=== PATIENT | male | born 1950 | race American Indian/Alaskan Native ===

== ENCOUNTER 2018-11-11 15:59 | Inpatient (IN) | payer MEDICARE ==
--- NOTE | 2018-11-11 16:56 | Emergency Department Report ---
ED Neuro Deficit HPI - General Chief Complaint: Neuro Symptoms/Deficit Stated Complaint: SLURRED SPEECH Time Seen by Provider: 11/11/18 16:39 Source: patient, family, EMS Mode of arrival: Stretcher Limitations: No Limitations - History of Present Illness Initial Comments: Patient is 67 years old male with no significant past medical history. Patient brought to the emergency room for evaluation of possible stroke. Patient stated that she was driving in he was in the passenger side when all of a sudden she noticed that his speech is change. She stated that she popped the Looked at His Face and saw he Face Is Twisting to the Right Side. stated that this is happened approximately at 15:30. The patient denied any weakness, numbness or tingling sensation. He added that he had right leg weakness for the last 3 weeks. Patient denied any headache, neck pain, chest pain, abdominal pain or bowel or bladder incontinence. Patient has been evaluated initially by Dr Keller and found not to have clinical evidence of stroke but likely a TIA, however when I examined the patient after patient , patient found to have mild slurred speech and a mild right facial droop. Patient confirmed this is not the way he speak or his face look. Stroke code initiated. Telemetry neurologist specialist called. -: Sudden Time: 15:30 Location: speech, right face, dysarthria Presenting Symptoms: Present: Facial Droop/Numbness, Unable to Speak Clearly History of same: No Place: outdoors Context: sudden onset Associated Symptoms: denies other symptoms - Related Data Allergies/Adverse Reactions: Allergies Allergy/AdvReac Type Severity Reaction Status Date / Time No Known Allergies Allergy Unverified 11/11/18 16:18 ED Review of Systems ROS: Stated complaint: SLURRED SPEECH Other details as noted in HPI Comment: All other systems reviewed and negative Constitutional: denies: chills, fever Respiratory: denies: cough, orthopnea, shortness of breath, SOB with exertion, SOB at rest, wheezing Cardiovascular: denies: chest pain, palpitations Gastrointestinal: denies: abdominal pain, nausea, vomiting, diarrhea, constipation, hematemesis, melena, hematochezia Musculoskeletal: denies: back pain ED Past Medical Hx - Past Medical History Previous Medical History?: No - Surgical History Past Surgical History?: No - Social History Smoking Status: Current Every Day Smoker Substance Use Type: None ED Neuro Physical Exam - General Limitations: No Limitations General appearance: alert, in no apparent distress Suspected Stroke: Yes - Head Head exam: Present: atraumatic, normocephalic, normal inspection - Eye Eye exam: Present: normal appearance, PERRL - ENT ENT exam: Present: normal exam, normal orophraynx, mucous membranes moist - Neck Neck exam: Present: normal inspection, full ROM. Absent: tenderness, meningismus, lymphadenopathy, thyromegaly - Respiratory Respiratory exam: Present: normal lung sounds bilaterally. Absent: respiratory distress, wheezes, rales, rhonchi, stridor, chest wall tenderness, accessory muscle use, decreased breath sounds, prolonged expiratory - Cardiovascular Cardiovascular Exam: Present: regular rate, normal rhythm, normal heart sounds - GI/Abdominal GI/Abdominal exam: Present: soft, normal bowel sounds. Absent: distended, tenderness, guarding, rebound, rigid, organomegaly, mass, bruit, pulsatile mass, hernia - Extremities Exam Extremities exam: Present: normal inspection, full ROM, normal capillary refill. Absent: pedal edema, joint swelling, calf tenderness - Back Exam Back exam: Present: normal inspection, full ROM. Absent: CVA tenderness (L), muscle spasm, paraspinal tenderness, vertebral tenderness - Neurological Exam Neurological exam: Present: alert, oriented X3. Absent: CN II-XII intact - NIHSS Assessment Interval: Baseline 1a. Level of Consciousness: alert/keenly responsive 1b. LOC Questions: answers both correctly 1c. LOC Commands: performs tasks correctly 2. Best Gaze: normal 3. Visual: no visual loss 4. Facial Palsy: minor paralysis 5b. Motor Arm Right: no drift 5a. Motor Arm Left: no drift 6a. Motor Leg Left: no drift 6b. Motor Leg Right: no drift 7. Limb Ataxia: absent 8. Sensory: normal 9. Best Language: mild/moderate aphasia 10. Dysarthria: mild/moderate dysarthria 11. Extinction/Inattention: no abnormality Total Score: 3 Stroke Severity: Minor Stroke - Psychiatric Psychiatric exam: Present: normal mood - Skin Skin exam: Present: warm, intact, normal color ED Course Vital Signs 11/11/18 11/11/18 11/11/18 16:15 16:20 16:30 Temperature 97.6 F Pulse Rate 61 51 L 58 L Respiratory 17 12 9 L Rate Blood Pressure 125/83 128/77 O2 Sat by Pulse 99 Oximetry 11/11/18 11/11/18 17:16 17:30 Temperature Pulse Rate 60 51 L Respiratory 20 8 L Rate Blood Pressure 125/79 125/79 O2 Sat by Pulse 97 98 Oximetry - Consultations Consultation #1: 11/11/18 17:24 I discussed the patient is Dr. Acosta, Tele- neurologist. Dr. Acosta examined the patient video conference and stated that patient is not a candidate for TPA given a possible previous infarct. She advised to admit patient for stroke workup. - Lab Data Result diagrams: 11/11/18 16:48 11/11/18 16:48 Lab Results 11/11/18 11/11/18 11/11/18 Range/Units 16:48 16:48 16:48 WBC 8.4 (4.5-11.0) K/mm3 RBC 4.65 (3.65-5.03) M/mm3 Hgb 12.9 (11.8-15.2) gm/dl Hct 38.3 (35.5-45.6) % MCV 82 L (84-94) fl MCH 28 (28-32) pg MCHC 34 (32-34) % RDW 14.2 (13.2-15.2) % Plt Count 151 (140-440) K/mm3 Lymph % (Auto) 8.0 L (13.4-35.0) % [place] % (Auto) 1.8 (0.0-7.3) % Eos % (Auto) 0.0 (0.0-4.3) % Baso % (Auto) 0.8 (0.0-1.8) % Lymph # 0.7 L (1.2-5.4) K/mm3 [place] # 0.2 (0.0-0.8) K/mm3 Eos # 0.0 (0.0-0.4) K/mm3 Baso # 0.1 (0.0-0.1) K/mm3 Seg Neutrophils % 89.4 H (40.0-70.0) % Seg Neutrophils # 7.5 (1.8-7.7) K/mm3 PT 14.2 (12.2-14.9) Sec. INR 1.04 (0.87-1.13) APTT 28.2 (24.2-36.6) Sec. Thrombin Time (15.1-19.6) Sec. Sodium 139 (137-145) mmol/L Potassium 4.4 (3.6-5.0) mmol/L Chloride 103.8 (98-107) mmol/L Carbon Dioxide 27 (22-30) mmol/L Anion Gap 13 mmol/L BUN 15 (9-20) mg/dL Creatinine 0.9 (0.8-1.5) mg/dL Estimated GFR > 60 ml/min BUN/Creatinine Ratio 17 % Glucose 127 H (75-100) mg/dL POC Glucose (70-105) Calcium 8.7 (8.4-10.2) mg/dL Troponin T < 0.010 (0.00-0.029) ng/mL 11/11/18 11/11/18 Range/Units 16:48 16:59 WBC (4.5-11.0) K/mm3 RBC (3.65-5.03) M/mm3 Hgb (11.8-15.2) gm/dl Hct (35.5-45.6) % MCV (84-94) fl MCH (28-32) pg MCHC (32-34) % RDW (13.2-15.2) % Plt Count (140-440) K/mm3 Lymph % (Auto) (13.4-35.0) % [place] % (Auto) (0.0-7.3) % Eos % (Auto) (0.0-4.3) % Baso % (Auto) (0.0-1.8) % Lymph # (1.2-5.4) K/mm3 [place] # (0.0-0.8) K/mm3 Eos # (0.0-0.4) K/mm3 Baso # (0.0-0.1) K/mm3 Seg Neutrophils % (40.0-70.0) % Seg Neutrophils # (1.8-7.7) K/mm3 PT (12.2-14.9) Sec. INR (0.87-1.13) APTT (24.2-36.6) Sec. Thrombin Time 16.0 (15.1-19.6) Sec. Sodium (137-145) mmol/L Potassium (3.6-5.0) mmol/L Chloride (98-107) mmol/L Carbon Dioxide (22-30) mmol/L Anion Gap mmol/L BUN (9-20) mg/dL Creatinine (0.8-1.5) mg/dL Estimated GFR ml/min BUN/Creatinine Ratio % Glucose (75-100) mg/dL POC Glucose 125 H (70-105) Calcium (8.4-10.2) mg/dL Troponin T (0.00-0.029) ng/mL - EKG Data -: EKG Interpreted by Me EKG shows normal: sinus rhythm Rate: bradycardia Interpretation: no acute changes - Radiology Data Radiology results: report reviewed - Medical Decision Making Patient is 67 years old male with no significant past medical history. Patient brought to the emergency room for evaluation of possible stroke. Patient stated that she was driving in he was in the passenger side when all of a sudden she noticed that his speech is change. She stated that she popped the Looked at His Face and saw he Face Is Twisting to the Right Side. stated that this is happened approximately at 15:30. The patient denied any weakness, numbness or tingling sensation. He added that he had right leg weakness for the last 3 weeks. Patient denied any headache, neck pain, chest pain, abdominal pain or bowel or bladder incontinence. Patient has been evaluated initially by Dr Keller and found not to have clinical evidence of stroke but likely a TIA, however when I examined the patient after patient , patient found to have mild slurred speech and a mild right facial droop. Patient confirmed this is not the way he speak or his face look. Stroke code initiated. Telemetry neurologist specialist called. I discussed the patient is Dr. Boateng, he agreed to admit the patient to medical service. Critical Care Time: Yes Critical care time in (mins) excluding proc time.: 30 Critical care attestation.: If time is entered above; I have spent that time in minutes in the direct care of this critically ill patient, excluding procedure time. ED Disposition Clinical Impression: Stroke Disposition: [id number] OP ADMIT IP TO THIS HOSP Is pt being admited?: Yes Condition: Stable
--- NOTE | 2018-11-11 17:02 | Event Note ---
Date: 11/11/18 Patient was brought to the hospital by emergency medical services for nonspecific slurred speech. They're not able to tell me when this started e xactly. When I initially evaluate the patient, he is alert and oriented 3, denies pain, and endorses no acute complaint. Patient initially has an NIH score of 0. There is no obvious facial facial droop, and the patient is able to speak in clear lucid sentences. He is specifically able to repeat after this provider, and states "the ski is blue" and " i like to drink coke." at the time of initial evaluation has no stroke like symptoms present, thus code stroke not activated i did recommend tia work up
[2018-11-11 17:03] LABS: Basophils # (Auto) 0.1 K/mm3 (0.0-0.1); Basophils % (Auto) 0.8 % (0.0-1.8); Hematocrit 38.3 % (35.5-45.6); Hemoglobin 12.9 gm/dl (11.8-15.2); Lymphocytes # (Auto) 0.7 K/mm3 (1.2-5.4); Mean Corpuscular HGB Conc 34 % (32-34); Mean Corpuscular Volume 82 fl (84-94); Monocytes # (Auto) 0.2 K/mm3 (0.0-0.8); Monocytes % (Auto) 1.8 % (0.0-7.3); Platelet Count 151 K/mm3 (140-440); Red Blood Count 4.65 M/mm3 (3.65-5.03); Red Cell Distribution Width 14.2 % (13.2-15.2)
[2018-11-11 17:14] LABS: INR 1.04 (0.87-1.13)
[2018-11-11 17:15] LABS: Partial Thromboplastin Time 28.2 Sec. (24.2-36.6)
[2018-11-11 17:18] LABS: BUN/Creatinine Ratio 17; Blood Urea Nitrogen 15 mg/dL (9-20); Calcium 8.7 mg/dL (8.4-10.2); Hemolysis Index 4
--- NOTE | 2018-11-11 17:32 | Cat Scan Report ---
PROCEDURE: CT HEAD/BRAIN WO CON TECHNIQUE: CT of the head was performed without intravenous contrast. HISTORY: neuro deficits COMPARISONS: None FINDINGS: The ventricles are normal in position and shape. The ventricles are nondilated. No intracranial hemorrhage, mass, mass effect or evidence of acute ischemic infarct. Mild areas of lo w-attenuation are seen within the periventricular white matter. The basilar cisterns are patent. Right maxillary sinus mucus retention cyst is seen. The mastoid air cells are clear. The orbits are intact. The calvarium is intact. No extracranial soft tissue swelling. IMPRESSION: 1. No acute intracranial abnormality. 2. Mild findings of chronic microvascular ischemic disease. The negative results were discussed by the [facility] staff with Dr. Jorge at 2:28 PM PST on 11/11/2018. This document is electronically signed by Betty Patterson., November 11 2018 05:30:27 PM ET
--- NOTE | 2018-11-11 18:04 | Consultation ---
History of Present Illness Consult date: 11/11/18 Reason for Consult: stroke alert Chief complaint: right facial droop, slurred speech History of present illness: 67 yo male with history of having sudden weakness in his right leg about 2 months ago that has persisted went to bed last night at 2330 hrs normal; woke this AM and noted a slight right facial droop and that he was "keeping to himself"... then around 1630 hrs she noted he was slurring his speech; brought him to the ED; no h/o stroke, doesnt take any meds. PMH/PSH/FH/SH noted meds- reviewed Medications and Allergies Allergies Allergy/AdvReac Type Severity Reaction Status Date / Time No Known Allergies Allergy Unverified 11/11/18 16:18 Physical Examination - Vital Signs Vital Signs: Vital Signs Temp Pulse Resp BP Pulse Ox 97.6 F 61 17 125/83 99 11/11/18 16:15 11/11/18 16:15 11/11/18 16:15 11/11/18 16:15 11/11/18 16:15 - Level of Consciousness 1a. Level of Consciousness: alert/keenly responsive - LOC Questions 1b. LOC Questions: answers both correctly - LOC Command 1c. LOC Commands: performs tasks correctly - Best Gaze 2. Best Gaze: normal - Visual 3. Visual: no visual loss (he has a right eye exotropia) - Facial Palsy 4. Facial Palsy: minor paralysis (right side) - Motor Arm 5a. Motor Arm Left: no drift 5b. Motor Arm Right: no drift - Motor Leg 6a. Motor Leg Left: no drift 6b. Motor Leg Right: drift - Limb Ataxia 7. Limb Ataxia: absent - Sensory 8. Sensory: normal - Best Language 9. Best Language: no aphasia - Dysarthria 10. Dysarthria: normal - Extinction and Inattention 11. Extinction/Inattention: no abnormality - Scoring Total Score: 2 Stroke Severity: Minor Stroke Results - Laboratory Findings CBC and BMP: 11/11/18 16:48 11/11/18 16:48 Abnormal Lab Findings: Abnormal Labs 11/11/18 11/11/18 11/11/18 16:48 16:48 16:59 MCV 82 L Lymph % (Auto) 8.0 L Lymph # 0.7 L Seg Neutrophils % 89.4 H Glucose 127 H POC Glucose 125 H Assessment and Plan [facility] Tele[facility] Consult Services Impression: r/o stroke vs TIA Recommendations: aspirin now and daily MRI brain to r/o stroke MRA H/N echo, lipids, a1C, telemetry inpatient neurology consult Metrics: LKN: 2330 TS [id number] TS connected 1653 [facility] 1653 Door:[id number] Medical Decision Making: - Extensive number of diagnosis or management options are considered above. - Extensive amount of complex data reviewed. - High risk of complication and/or morbidity or mortality are associated with differential diagnostic considerations above. - There may be uncertain outcome and increased probability of prolonged functi onal impairment or high probability of severe prolonged functional impairment associated with some of these differential diagnosis. Medical Data Reviewed: 1.Data reviewed include clinical labs, radiology, Medical Tests; 2.Tests results discussed w/performing or interpreting physician; 3.Obtaining/reviewing old medical records; 4.Obtaining case history from another source; 5.Independent review of image, tracing or specimen. Patient was informed the Neurology Consult would happen via telehealth (remote video) and consented to receiving care in this manner.
[2018-11-11] MEDS ORDERED: SODIUM CHLORIDE FLUSH SYRINGE 10 ML INJ PRN (20:39)
[2018-11-11] MEDS ORDERED: DULCOLAX PR PRN (20:39)
[2018-11-11] MEDS ORDERED: REGLAN PO PRN (20:39)
[2018-11-11] MEDS ORDERED: MILK OF MAGNESIA PO PRN (20:39)
[2018-11-11] MEDS ORDERED: SODIUM CHLORIDE FLUSH SYRINGE 10 ML IV PRN (20:39)
[2018-11-11] MEDS ORDERED: TYLENOL PO PRN ×2 (20:39)
[2018-11-11] MEDS ORDERED: PHENERGAN PR PRN (20:39)
[2018-11-11] MEDS ORDERED: ZOFRAN IV PRN ×2 (20:39)
--- NOTE | 2018-11-11 21:10 | History and Physical Report ---
<GREY CELAYA - Last Filed: 11/13/18 20:39> History of Present Illness Date of examination: 11/11/18 Date of admission: 11/11/18 18:08 Chief complaint: Slurred speech, facial droop History of present illness: Patient is a 67-year-old male with no prior medical history who presents to the ER with his for complaints of slurred speech and right facial droop. Patient's reports that the symptoms started prior to arriving to the ER, while they were driving she noticed that this speech was slurred, and his face was drooping to the right. Patient's states that she decided to takes him to the ER for evaluation. Patient was examined by teleneurology, he denies any confusion, any weakness, his speech was noted to be slightly slurred, and he had a mild drooping on his face. Patient reports a right leg pain that has been going on for 3 weeks, he denies any acute illness, denies visual changes, denies memory impairment, denies difficulty speaking, denies headache, denies dizziness, denies numbness or tingling. Patient was examined and the his physical exam was within normal limit except for mild facial droop, speech is clear, he was alert and orientated 3. A CT scan of the brain was done and was negative, patient is admitted for further evaluation of his symptoms. Past History Past Medical History: No medical history Past Surgical History: No surgical history Social history: smoking (few cigarette per day) Family history: no significant family history Medications and Allergies Allergies Allergy/AdvReac Type Severity Reaction Status Date / Time No Known Allergies Allergy Verified 11/11/18 21:12 Home Medications Medication Instructions Recorded Confirmed Last Taken Type No Known Home Medications [No 11/11/18 11/11/18 Unknown History Reported Home Medications] Review of Systems Ears, nose, mouth and throat: other (facial droop) Musculoskeletal: leg numbness/tingling, other (right leg pain) Exam - Constitutional Vitals: Temp Pulse Resp BP Pulse Ox 97.3 F L 63 12 136/77 97 11/11/18 20:39 11/11/18 20:39 11/11/18 20:39 11/11/18 20:39 11/11/18 20:39 General appearance: Present: no acute distress - EENT Eyes: Present: EOM intact ENT: hearing intact - Neck Neck: Present: normal ROM - Respiratory Respiratory effort: normal Respiratory: bilateral: CTA - Cardiovascular Rhythm: regular Heart Sounds: Present: S1 & S2 - Extremities Extremities: no ischemia Peripheral Pulses: within normal limits - Abdominal General gastrointestinal: Present: soft, non-tender Male genitourinary: Present: deferred - Rectal Rectal Exam: deferred - Integumentary Integumentary: Present: warm, dry - Musculoskeletal Musculoskeletal: strength equal bilaterally - Psychiatric Psychiatric: cooperative - Neurologic Neurologic: moves all extremities Results - Labs CBC & Chem 7: 11/11/18 16:48 11/11/18 16:48 Labs: Laboratory Last Values WBC 8.4 K/mm3 (4.5-11.0) 11/11/18 16:48 RBC 4.65 M/mm3 (3.65-5.03) 11/11/18 16:48 Hgb 12.9 gm/dl (11.8-15.2) 11/11/18 16:48 Hct 38.3 % (35.5-45.6) 11/11/18 16:48 MCV 82 fl (84-94) L 11/11/18 16:48 MCH 28 pg (28-32) 11/11/18 16:48 MCHC 34 % (32-34) 11/11/18 16:48 RDW 14.2 % (13.2-15.2) 11/11/18 16:48 Plt Count 151 K/mm3 (140-440) 11/11/18 16:48 Lymph % (Auto) 8.0 % (13.4-35.0) L 11/11/18 16:48 [place] % (Auto) 1.8 % (0.0-7.3) 11/11/18 16:48 Eos % (Auto) 0.0 % (0.0-4.3) 11/11/18 16:48 Baso % (Auto) 0.8 % (0.0-1.8) 11/11/18 16:48 Lymph # 0.7 K/mm3 (1.2-5.4) L 11/11/18 16:48 [place] # 0.2 K/mm3 (0.0-0.8) 11/11/18 16:48 Eos # 0.0 K/mm3 (0.0-0.4) 11/11/18 16:48 Baso # 0.1 K/mm3 (0.0-0.1) 11/11/18 16:48 Seg Neutrophils % 89.4 % (40.0-70.0) H 11/11/18 16:48 Seg Neutrophils # 7.5 K/mm3 (1.8-7.7) 11/11/18 16:48 PT 14.2 Sec. (12.2-14.9) 11/11/18 16:48 INR 1.04 (0.87-1.13) 11/11/18 16:48 APTT 28.2 Sec. (24.2-36.6) 11/11/18 16:48 Thrombin Time 16.0 Sec. (15.1-19.6) 11/11/18 16:48 Sodium 139 mmol/L (137-145) 11/11/18 16:48 Potassium 4.4 mmol/L (3.6-5.0) 11/11/18 16:48 Chloride 103.8 mmol/L (98-107) 11/11/18 16:48 Carbon Dioxide 27 mmol/L (22-30) 11/11/18 16:48 Anion Gap 13 mmol/L 11/11/18 16:48 BUN 15 mg/dL (9-20) 11/11/18 16:48 Creatinine 0.9 mg/dL (0.8-1.5) 11/11/18 16:48 Estimated GFR > 60 ml/min 11/11/18 16:48 BUN/Creatinine Ratio 17 % 11/11/18 16:48 Glucose 127 mg/dL (75-100) H 11/11/18 16:48 POC Glucose 125 (70-105) H 11/11/18 16:59 Calcium 8.7 mg/dL (8.4-10.2) 11/11/18 16:48 Troponin T < 0.010 ng/mL (0.00-0.029) 11/11/18 16:48 Assessment and Plan Assessment and plan: 1. Acute TIA r/o CVA 2. Chronic Right leg pain and discomfort Plan: Patient is admitted for TIA to rule out CVA Monitor vital signs/cardiac studies Neuro checks q4hrs MRI of the brain for follow-up CT Bedside swallow study Keep NPO until swallow study Further plan per neurology Advance Directives: Yes VTE prophylaxis?: Mechanical Plan of care discussed with patient/family: Yes <IRIS CENTENO - Last Filed: 11/19/18 07:22> History of Present Illness Date of admission: 11/11/18 18:08 Exam - Constitutional Vitals: Temp Pulse Resp BP Pulse Ox 97.6 F 61 12 110/74 99 11/13/18 04:09 11/13/18 08:08 11/13/18 04:09 11/13/18 04:09 11/13/18 04:09 Results - Labs CBC & Chem 7: 11/11/18 16:48 11/11/18 16:48 Labs: Laboratory Last Values WBC 8.4 K/mm3 (4.5-11.0) 11/11/18 16:48 RBC 4.65 M/mm3 (3.65-5.03) 11/11/18 16:48 Hgb 12.9 gm/dl (11.8-15.2) 11/11/18 16:48 Hct 38.3 % (35.5-45.6) 11/11/18 16:48 MCV 82 fl (84-94) L 11/11/18 16:48 MCH 28 pg (28-32) 11/11/18 16:48 MCHC 34 % (32-34) 11/11/18 16:48 RDW 14.2 % (13.2-15.2) 11/11/18 16:48 Plt Count 151 K/mm3 (140-440) 11/11/18 16:48 Lymph % (Auto) 8.0 % (13.4-35.0) L 11/11/18 16:48 [place] % (Auto) 1.8 % (0.0-7.3) 11/11/18 16:48 Eos % (Auto) 0.0 % (0.0-4.3) 11/11/18 16:48 Baso % (Auto) 0.8 % (0.0-1.8) 11/11/18 16:48 Lymph # 0.7 K/mm3 (1.2-5.4) L 11/11/18 16:48 [place] # 0.2 K/mm3 (0.0-0.8) 11/11/18 16:48 Eos # 0.0 K/mm3 (0.0-0.4) 11/11/18 16:48 Baso # 0.1 K/mm3 (0.0-0.1) 11/11/18 16:48 Seg Neutrophils % 89.4 % (40.0-70.0) H 11/11/18 16:48 Seg Neutrophils # 7.5 K/mm3 (1.8-7.7) 11/11/18 16:48 PT 14.2 Sec. (12.2-14.9) 11/11/18 16:48 INR 1.04 (0.87-1.13) 11/11/18 16:48 APTT 28.2 Sec. (24.2-36.6) 11/11/18 16:48 Thrombin Time 16.0 Sec. (15.1-19.6) 11/11/18 16:48 Sodium 139 mmol/L (137-145) 11/11/18 16:48 Potassium 4.4 mmol/L (3.6-5.0) 11/11/18 16:48 Chloride 103.8 mmol/L (98-107) 11/11/18 16:48 Carbon Dioxide 27 mmol/L (22-30) 11/11/18 16:48 Anion Gap 13 mmol/L 11/11/18 16:48 BUN 15 mg/dL (9-20) 11/11/18 16:48 Creatinine 0.9 mg/dL (0.8-1.5) 11/11/18 16:48 Estimated GFR > 60 ml/min 11/11/18 16:48 BUN/Creatinine Ratio 17 % 11/11/18 16:48 Glucose 127 mg/dL (75-100) H 11/11/18 16:48 POC Glucose 125 (70-105) H 11/11/18 16:59 Hemoglobin A1c 5.8 % (4-6) 11/11/18 16:48 Calcium 8.7 mg/dL (8.4-10.2) 11/11/18 16:48 Troponin T < 0.010 ng/mL (0.00-0.029) 11/11/18 16:48 Triglycerides 49 mg/dL (2-149) 11/11/18 21:50 Cholesterol 148 mg/dL (50-199) 11/11/18 21:50 LDL Cholesterol Direct 98 mg/dL (50-130) 11/11/18 21:50 HDL Cholesterol 49 mg/dL (40-59) 11/11/18 21:50 Cholesterol/HDL Ratio 3.02 % 11/11/18 21:50 Urine Color Yellow (Yellow) 11/11/18 23:27 Urine Turbidity Clear (Clear) 11/11/18 23:27 Urine pH 6.0 (5.0-7.0) 11/11/18 23:27 Ur Specific [place] 1.060 (1.003-1.030) H 11/11/18 23:27 Urine Protein <15 mg/dl mg/dL (Negative) 11/11/18 23:27 Urine Glucose (UA) Neg mg/dL (Negative) 11/11/18 23:27 Urine Ketones Neg mg/dL (Negative) 11/11/18 23:27 Urine Blood Neg (Negative) 11/11/18 23:27 Urine Nitrite Neg (Negative) 11/11/18 23:27 Urine Bilirubin Neg (Negative) 11/11/18 23:27 Urine Urobilinogen 2.0 mg/dL (<2.0) 11/11/18 23:27 Ur Leukocyte Esterase Neg (Negative) 11/11/18 23:27 Urine WBC (Auto) 1.0 /HPF (0.0-6.0) 11/11/18 23:27 Urine RBC (Auto) 5.0 /HPF (0.0-6.0) 11/11/18 23:27 Urine Mucus 1+ /HPF 11/11/18 23:27 Urine Opiates Screen Presumptive negative 11/11/18 23:27 Urine Methadone Screen Presumptive negative 11/11/18 23:27 Ur Barbiturates Screen Presumptive negative 11/11/18 23:27 Ur Phencyclidine Scrn Presumptive negative 11/11/18 23:27 Ur Amphetamines Screen Presumptive negative 11/11/18 23:27 U Benzodiazepines Scrn Presumptive negative 11/11/18 23:27 Urine Cocaine Screen Presumptive negative 11/11/18 23:27 U Marijuana (THC) Screen Presumptive negative 11/11/18 23:27 Drugs of Abuse Note Disclamer 11/11/18 23:27
--- NOTE | 2018-11-11 21:21 | Cat Scan Report ---
PROCEDURE: CT angiogram neck with contrast. TECHNIQUE: Computerized tomographic angiography of the neck was performed after the IV injection of iodinated nonionic contrast including image processing. The image data was postprocessed using 2-dime nsional multiplanar reformatted (MPR) and 3-dimensional (MIP and/or volume rendered) techniques. CT DOSE LENGTH PRODUCT: 785.6 mGycm HISTORY: Stroke. COMPARISONS: None. Note: Assessment of carotid artery stenosis is based on measurement of the distal internal carotid a rtery diameter as the denominator for stenosis calculations and the [place] Symptomatic Caroti d Endarterectomy Trial (NASCET) stenosis criteria. FINDINGS: The technologist has included some images of the head. There is a separate requisition for that study . I will limit my review to the images of the neck. The origins of the innominate artery, left common carotid artery and left subclavian artery are paten t. Both common carotid arteries are patent. There is some atherosclerotic plaque at both carotid floridalma ry bifurcations. There is no significant narrowing of either internal carotid artery however. Both in ternal carotid arteries are widely patent. Both external carotid arteries are widely patent. Both rufino tebral arteries are widely patent. The soft tissues of the neck are unremarkable. The bones appear in tact. The mastoid air cells and paranasal sinuses are clear. IMPRESSION: No evidence of significant atherosclerotic narrowing in either carotid artery. This document is electronically signed by Emilio Batres MD., November 11 2018 09:18:59 PM ET
--- NOTE | 2018-11-11 22:10 | Cat Scan Report ---
PROCEDURE: CT ANGIO HEAD TECHNIQUE: CT angiogram head with intravenous contrast Study performed with multiplanar reconstructions and maximum intensity 3-D reconstruction HISTORY: stroke COMPARISONS: FINDINGS: Cavernous ICAs are unremarkable Before meals distribution is within normal limits. MCA distribution demonstrates normal caliber no ev idence for vascular occlusions. The distal vertebral arteries and basilar and STAVE [employer] BOL[employer] EQUAL[employer]ER distributions are unremarkable. IMPRESSION: Negative CT angiogram head. This document is electronically signed by Kenny Hernandez MD., November 11 2018 10:09:18 PM ET
[2018-11-11] MEDS: SODIUM CHLORIDE FLUSH SYRINGE 10 ML IV SCH (22:27)
[2018-11-11 22:43] LABS: Chol/HDL Ratio 3.02 %
[2018-11-11 23:59] LABS: Amphetamine Screen,Urine PRESUMPTIVE NEGATIVE; Benzodiazepines Screen,Urine PRESUMPTIVE NEGATIVE; Cannabinoid Screen,Urine PRESUMPTIVE NEGATIVE; Cocaine Screen,Urine PRESUMPTIVE NEGATIVE; Methadone Screen,Urine PRESUMPTIVE NEGATIVE; Opiate Screen,Urine PRESUMPTIVE NEGATIVE
[2018-11-12 00:07] LABS: Bilirubin,Urine NEG (Negative); Blood,Urine NEG (Negative); Color,Urine Yellow (Yellow); Protein,Urine <15 mg/dL mg/dL (Negative)
[2018-11-12 00:13] LABS: Mucus,Urine 1+ /HPF
[2018-11-12] MEDS: SODIUM CHLORIDE FLUSH SYRINGE 10 ML IV SCH ×2 (09:59→23:04)
--- NOTE | 2018-11-12 11:48 | Progress Note ---
Assessment and Plan Assessment and plan: 67-year-old male with no significant past medical history came to the hospital with acute onset of slurred speech and a symmetrical face. He had been complaining of right leg weakness [address] head; no acute findings CT angiogram head; no acute findings CT angiogram neck; no acute findings Labs; LDL 98 , urinalysis negative, UDS negative EKG; sinus yash, 54BPM Diagnoses TIA Plan Obtain MRI brain, MRA head, carotid Dopplers, echocardiogram, permissive hypertension, stroke education, neurology consult Optimize meds as secondary prevention, aspirin and statin added -DVT prophylaxis SCDs and early ambulation History Interval history: Review of systems Constitutional: No fevers, no malaise, no joint pains CVS: No chest pain, no orthopnea, no dyspnea on exertion, no pedal edema GI: No abdominal pain, no diarrhea, no vomiting, no constipation Respiratory: No shortness of breath, no wheezing, no coughing Hospitalist Physical - Physical exam Narrative exam: General.: Appears well, no distress, nontoxic HEENT: Moist mucous membranes, extraocular muscles intact, no lymphadenopathy Neck: supple Cardiac: S1-S2 heard Lungs: clear to auscultation bilaterally Abdomen: soft , nontender, nondistended, bowel sounds positive Extremities: no edema clubbing or cyanosis Skin: no rash or lesions Neurologic: no gross focal deficits Psych: calm, and cooperative - Constitutional Vitals: Temp Pulse Resp BP Pulse Ox 97.9 F 77 22 112/72 77 L 11/12/18 11:19 11/12/18 11:19 11/12/18 11:19 11/12/18 11:19 11/12/18 11:19 General appearance: Present: no acute distress Results - Labs CBC & Chem 7: 11/11/18 16:48 11/11/18 16:48 Labs: Laboratory Last Values WBC 8.4 K/mm3 (4.5-11.0) 11/11/18 16:48 RBC 4.65 M/mm3 (3.65-5.03) 11/11/18 16:48 Hgb 12.9 gm/dl (11.8-15.2) 11/11/18 16:48 Hct 38.3 % (35.5-45.6) 11/11/18 16:48 MCV 82 fl (84-94) L 11/11/18 16:48 MCH 28 pg (28-32) 11/11/18 16:48 MCHC 34 % (32-34) 11/11/18 16:48 RDW 14.2 % (13.2-15.2) 11/11/18 16:48 Plt Count 151 K/mm3 (140-440) 11/11/18 16:48 Lymph % (Auto) 8.0 % (13.4-35.0) L 11/11/18 16:48 Coles % (Auto) 1.8 % (0.0-7.3) 11/11/18 16:48 Eos % (Auto) 0.0 % (0.0-4.3) 11/11/18 16:48 Baso % (Auto) 0.8 % (0.0-1.8) 11/11/18 16:48 Lymph # 0.7 K/mm3 (1.2-5.4) L 11/11/18 16:48 Coles # 0.2 K/mm3 (0.0-0.8) 11/11/18 16:48 Eos # 0.0 K/mm3 (0.0-0.4) 11/11/18 16:48 Baso # 0.1 K/mm3 (0.0-0.1) 11/11/18 16:48 Seg Neutrophils % 89.4 % (40.0-70.0) H 11/11/18 16:48 Seg Neutrophils # 7.5 K/mm3 (1.8-7.7) 11/11/18 16:48 PT 14.2 Sec. (12.2-14.9) 11/11/18 16:48 INR 1.04 (0.87-1.13) 11/11/18 16:48 APTT 28.2 Sec. (24.2-36.6) 11/11/18 16:48 Thrombin Time 16.0 Sec. (15.1-19.6) 11/11/18 16:48 Sodium 139 mmol/L (137-145) 11/11/18 16:48 Potassium 4.4 mmol/L (3.6-5.0) 11/11/18 16:48 Chloride 103.8 mmol/L (98-107) 11/11/18 16:48 Carbon Dioxide 27 mmol/L (22-30) 11/11/18 16:48 Anion Gap 13 mmol/L 11/11/18 16:48 BUN 15 mg/dL (9-20) 11/11/18 16:48 Creatinine 0.9 mg/dL (0.8-1.5) 11/11/18 16:48 Estimated GFR > 60 ml/min 11/11/18 16:48 BUN/Creatinine Ratio 17 % 11/11/18 16:48 Glucose 127 mg/dL (75-100) H 11/11/18 16:48 POC Glucose 125 (70-105) H 11/11/18 16:59 Hemoglobin A1c 5.8 % (4-6) 11/11/18 16:48 Calcium 8.7 mg/dL (8.4-10.2) 11/11/18 16:48 Troponin T < 0.010 ng/mL (0.00-0.029) 11/11/18 16:48 Triglycerides 49 mg/dL (2-149) 11/11/18 21:50 Cholesterol 148 mg/dL (50-199) 11/11/18 21:50 LDL Cholesterol Direct 98 mg/dL (50-130) 11/11/18 21:50 HDL Cholesterol 49 mg/dL (40-59) 11/11/18 21:50 Cholesterol/HDL Ratio 3.02 % 11/11/18 21:50 Urine Color Yellow (Yellow) 11/11/18 23:27 Urine Turbidity Clear (Clear) 11/11/18 23:27 Urine pH 6.0 (5.0-7.0) 11/11/18 23:27 Ur Specific [place] 1.060 (1.003-1.030) H 11/11/18 23:27 Urine Protein <15 mg/dl mg/dL (Negative) 11/11/18 23:27 Urine Glucose (UA) Neg mg/dL (Negative) 11/11/18 23:27 Urine Ketones Neg mg/dL (Negative) 11/11/18 23:27 Urine Blood Neg (Negative) 11/11/18 23:27 Urine Nitrite Neg (Negative) 11/11/18 23:27 Urine Bilirubin Neg (Negative) 11/11/18 23:27 Urine Urobilinogen 2.0 mg/dL (<2.0) 11/11/18 23:27 Ur Leukocyte Esterase Neg (Negative) 11/11/18 23:27 Urine WBC (Auto) 1.0 /HPF (0.0-6.0) 11/11/18 23:27 Urine RBC (Auto) 5.0 /HPF (0.0-6.0) 11/11/18 23:27 Urine Mucus 1+ /HPF 11/11/18 23:27 Urine Opiates Screen Presumptive negative 11/11/18 23:27 Urine Methadone Screen Presumptive negative 11/11/18 23:27 Ur Barbiturates Screen Presumptive negative 11/11/18 23:27 Ur Phencyclidine Scrn Presumptive negative 11/11/18 23:27 Ur Amphetamines Screen Presumptive negative 11/11/18 23:27 U Benzodiazepines Scrn Presumptive negative 11/11/18 23:27 Urine Cocaine Screen Presumptive negative 11/11/18 23:27 U Marijuana (THC) Screen Presumptive negative 11/11/18 23:27 Drugs of Abuse Note Disclamer 11/11/18 23:27 Active Medications - Current Medications Current Medications: Generic Name Dose Route Start Last Admin Trade Name Freq PRN Reason Stop Dose Admin Acetaminophen 650 mg 11/11/18 20:39 Tylenol PO Q4H PRN Pain MILD(1-3)/Fever >100.5/HYMAN Aspirin 81 mg 11/12/18 12:00 Halfprin Ec PO QDAY JOCE Bisacodyl 10 mg 11/11/18 20:39 Dulcolax VT QDAY PRN Constipation Magnesium Hydroxide 30 ml 11/11/18 20:39 Milk Of Magnesia PO Q4H PRN Constipation Metoclopramide HCl 10 mg 11/11/18 20:39 Reglan PO Q6H PRN Nausea And Vomiting Ondansetron HCl 4 mg 11/11/18 20:39 Zofran IV Q8H PRN Nausea And Vomiting Pravastatin Sodium 40 mg 11/12/18 22:00 Pravachol PO QHS JOCE Promethazine HCl 25 mg 11/11/18 20:39 Phenergan VT Q6H PRN Nausea And Vomiting Sodium Chloride 10 ml 11/11/18 22:00 11/12/18 09:59 Sodium Chloride Flush Syringe 10 Ml IV 10 ml BID JOCE Administration Sodium Chloride 10 ml 11/11/18 20:39 Sodium Chloride Flush Syringe 10 Ml IV PRN PRN LINE FLUSH Nutrition/Malnutrition Assess - Dietary Evaluation Nutrition/Malnutrition Findings: Nutrition Notes Start: 11/12/18 11:07 Freq: Status: Active Protocol: Document 11/12/18 11:08 TW (Rec: 11/12/18 11:16 TW [id number]) Co-Sign 11/12/18 11:08 LP Nutrition Notes 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 Noted Dwight score=19. Pt reports having good appetite and eating 100% of meals. Pt denies unintentional wt loss, N/V/D, chewing/swallowing difficulties, and any food allergies. Discussed with pt ONS, pt agrees with trying an Ensure Enlive strawberry daily . Percent of energy/protein needs met: 82%/100% Burn Absent Trauma Absent GI Symptoms None Food Allergy No Current % PO Good (75-100%) #1 Nutrition Diagnosis Underweight Etiology advanced age As Evidenced by Signs and Symptoms BMI low for age Is patient on ventilator? No Is Patient Ambulatory and/or Out of Bed Yes REE-([facility]-ambulatory/OOB) [ 2053.650 [id number]] Kcal/Kg value to use for calculation 37 Approximate Energy Requirements Using 2568 kcal/Kg Calculation Used for Recommendations Kcal/kg Additional Notes pro: 69-83g/day (1-1.2g/kg) fluid: 1mL/kcal or per MD Nutrition Intervention Change Diet Order: Continue Cardiac Add Supplement/Snack (indicate name/kcal Ensure Enlive strawberry daily /protein ) Provides kCal: 350 Provides Protein (gm) 20 Goal #1 Continue to meet at least 80% of kcal and pro needs by PO/ ONS intakes Follow-Up By: 11/14/18 Additional Comments F/U: PO/ONS intakes
[2018-11-12] MEDS ORDERED: HALFPRIN EC PO SCH (14:00)
[2018-11-12] MEDS ORDERED: ATIVAN IV NR (16:00)
--- NOTE | 2018-11-12 17:20 | Vascular Lab Report ---
PROCEDURE: VL CAROTID DUPLEX BILAT TECHNIQUE: Duplex Doppler ultrasound of the common, internal and external carotid arteries and the v ertebral arteries was performed bilaterally. Martinez scale imaging, velocity spectral waveform analysis, and color flow Doppler were employed. HISTORY: stroke COMPARISONS: None . Note: Measurement of carotid stenosis is based on flow velocity values that correlate with the [place] Symptomatic Carotid Endarterectomy Trial (NASCET) based stenosis criteria using the internal carotid artery diameter as the denominator for stenosis calculation. FINDINGS: RIGHT carotid artery: Velocities: ICA PSV: 87 cm/sec ICA End diastolic: 32 cm/sec CCA PSV: 87 cm/sec IC/CC ratio: 1.0 Plaque/color flow: Mild heterogeneous plaque without significant spectral broadening or abnormal col or flow . RIGHT vertebral artery: Antegrade systolic and diastolic flow LEFT carotid artery: Velocities: ICA PSV: 101 cm/sec ICA End diastolic: 39 cm/sec CCA PSV: 103 cm/sec IC/CC ratio: 0. 98 Plaque/color flow: Mild heterogeneous plaque without significant spectral broadening or abnormal col or flow . LEFT vertebral artery: Antegrade systolic and diastolic flow IMPRESSION: 1. RIGHT carotid: No hemodynamically significant (less than 50 percent) internal carotid artery popeye nosis. 2. LEFT carotid: No hemodynamically significant (less than 50 percent) internal carotid artery sten osis. 3. Vertebral arteries: Bilaterally antegrade. This document is electronically signed by Betty Patterson., November 12 2018 05:18:11 PM ET
--- NOTE | 2018-11-12 17:33 | Consultation ---
History of Present Illness Consult date: 11/12/18 Requesting physician: LAURA BARRY Reason for Consult: TIA Chief complaint: right facial droop, slurring History of present illness: This 67-year-old right-handed -[place] male at 9 AM yesterday was noted by his to have right facial droop. At 3:30 PM she noted slurring of speech leading to his coming to the emergency room and being admitted. She says both of these symptoms are gone today. CT scan showed some hypodensities radial and posterior to the lateral ventricles on my review. He states he had right leg weakness for the past 2 months with some associated numbness and pain in the right inguinal area and medial to and superior to his right knee described as th robbing and sharp. He states this has caused him to fall twice but no medical attention was sought. He was on no medications and no supplements at home. Echocardiogram is pending. CT angios of head and neck are normal. LDL is 98. Past medical history: No prior strokes or hypertension or heart disease according to him. No surgeries. No injuries. 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 with 6 children and 4 grandchildren all alive and well. Family history: Negative for strokes, hypertension, epilepsy or diabetes. Review of systems: Negative for headaches or dizziness, does not snore or have any pauses that he knows of, naps for an hour daily but not dozing off otherwise, not driving. No memory problems. Right thigh numbness and pain as noted, no low back pain. General Appearance: well developed well nourished (per BMI) mid 60s - [place] male in [facility], seen with his . HEENT: atraumatic, normocephalic; no bruits, 2+ Faustino without soreness or induration or enlargement, sclerae nonicteric. Oropharynx pink and moist. Heart: no murmur or extra sounds. Extremities: no clubbing, cyanosis or edema. 2+ dorsalis pedis pulses bilaterally. Neurologic Exam: Mental Status: Awake alert oriented to November 11 but gives the year twice as 2018. Knows president and after first name is prompt gives CLAY HOISTER. Gets 0 of 3 objects at 3 minutes on 2 different batches. Serial sevens are slow with some errors which he corrects with prompting. Names and abstracts well, no right left confusion, spells world backwards correctly. Cranial Nerves: Razo are full, no papilledema, has alternating exotropia, EOMs full, pupils react well to light and to accommodation, facial sensation is intact, no facial weakness, Isaacs is midline, palate rises symmetrically to phonation but there is a lot of mucus in the oropharynx and no gag response. Shoulder shrug is normal, tongue protrudes midline. Cerebellar: finger to nose is normal, tandem requires furniture support. Sensory: intact to primary modalities. Double simultaneous stimulation is intact. Motor Exam Upper Extremities: no drift or pronation, Chris intact. Edge Worker are 5 X 2, tone is normal. No atrophy or fasciculations are noted visually. Motor Exam Lower Extremities: Stands on heels and toes with furniture support but not safe to hop; iliopsoas is 5 on the left but 4+ on the right with pain of the knee, quadriceps is 4 on the right with pain at the knee, anterior tibials and gastrocnemius are 5 X 2. Chris intact. Tone is normal. No atrophy or fasciculations are noted visually. Reflexes: Palmomental, snout and jaw jerk are negative. Triceps, biceps and brachioradialis are trace. Natividad's is negative bilaterally. Knee jerks are 1 and ankle jerks are 0 bilaterally becoming trace left and remaining 0 right with reinforcement and without clonus. Toes are upgoing bilaterally to Babinski testing. : Past History Past Medical History: No medical history Past Surgical History: No surgical history Social history: smoking (few cigarette per day) Family history: no significant family history Medications and Allergies Allergies Allergy/AdvReac Type Severity Reaction Status Date / Time No Known Allergies Allergy Verified 11/11/18 21:12 Home Medications Medication Instructions Recorded Confirmed Last Taken Type No Known Home Medications [No 11/11/18 11/11/18 Unknown History Reported Home Medications] Active Meds: Active Medications Acetaminophen (Tylenol) 650 mg PO Q4H PRN PRN Reason: Pain MILD(1-3)/Fever >100.5/HYMAN Aspirin (Halfprin Ec) 81 mg PO QDAY JOCE Last Admin: 11/12/18 16:08 Dose: 81 mg Documented by: Bisacodyl (Dulcolax) 10 mg MA QDAY PRN PRN Reason: Constipation Lorazepam (Ativan) 2 mg IV TIRE MAKER NR Magnesium Hydroxide (Milk Of Magnesia) 30 ml PO Q4H PRN PRN Reason: Constipation Metoclopramide HCl (Reglan) 10 mg PO Q6H PRN PRN Reason: Nausea And Vomiting Ondansetron HCl (Zofran) 4 mg IV Q8H PRN PRN Reason: Nausea And Vomiting Pravastatin Sodium (Pravachol) 40 mg PO QHS JOCE Promethazine HCl (Phenergan) 25 mg MA Q6H PRN PRN Reason: Nausea And Vomiting Sodium Chloride (Sodium Chloride Flush Syringe 10 Ml) 10 ml IV BID JOCE Last Admin: 11/12/18 09:59 Dose: 10 ml Documented by: Sodium Chloride (Sodium Chloride Flush Syringe 10 Ml) 10 ml IV PRN PRN PRN Reason: LINE FLUSH Physical Examination - Vital Signs Vital Signs: Vital Signs Temp Pulse Resp BP Pulse Ox 97.6 F 61 17 125/83 99 11/11/18 16:15 11/11/18 16:15 11/11/18 16:15 11/11/18 16:15 11/11/18 16:15 Results - Laboratory Findings CBC and BMP: 11/11/18 16:48 11/11/18 16:48 Abnormal Lab Findings: Abnormal Labs 11/11/18 11/11/18 11/11/18 16:48 16:48 16:59 MCV 82 L Lymph % (Auto) 8.0 L Lymph # 0.7 L Seg Neutrophils % 89.4 H Glucose 127 H POC Glucose 125 H Ur Specific [place] 11/11/18 23:27 MCV Lymph % (Auto) Lymph # Seg Neutrophils % Glucose POC Glucose Ur Specific [place] 1.060 H Assessment and Plan Impression: 1. TIA vs stroke 2. Recent older stroke, possibly thrombotic Plan: 1. MRI pending. 2. Echo with bubbles pending. 3. Ordered Xrays of right hip, femur and knee. 4. I told him smoking is the likely cause of his strokes. 60 minutes spent including review of multiple CT images. Thank you for an interesting consultation on this pleasant mid 60s man. Will sign off, call if any unusual MRI or echocardiogram findings. If infarcts are found and appeared to be possibly embolic, should have outpatient 30 day event monitoring also.
--- NOTE | 2018-11-12 18:03 | XRay Report ---
PROCEDURE: AP pelvis and frog-leg view of the right hip TECHNIQUE: AP view of the pelvis and frog-leg view of the right hip were obtained. HISTORY: right inguinal pain COMPARISONS: None FINDINGS: Moderate osteoarthritis seen in the right hip. There is narrowing of the hip joint, sclerosis of the opposing articular surfaces and multiple small moderate sized subchondral cyst present. Mild osteoart hritis in the left hip and SI joints. Superior aspect left iliac wing is not included on this exam. No abnormal soft tissue masses are seen in the right or left inguinal canal. If there is concern for mass or hernia ultrasound or CT scan may be helpful. IMPRESSION: Arthritic change visualized within the hips and SI joints as described, this is greatest in the right hip. No acute bone abnormalities are identified. No abnormalities are seen in the region of the inguinal canals. Please see above comments.. This document is electronically signed by Martínez Castellanos MD., November 12 2018 06:02:12 PM ET
--- NOTE | 2018-11-12 18:05 | XRay Report ---
PROCEDURE: XR KNEE 3V RT TECHNIQUE: AP, oblique and lateral views were obtained. HISTORY: right groin and lower thigh pain COMPARISONS: None FINDINGS: Small marginal osteophytic spurs project in the medial compartment of the knee and patellofemoral harmony nt space. No fracture or dislocation seen. No significant effusions are identified. Bone density appe ars normal. No radiopaque foreign bodies are identified. IMPRESSION: Mild osteoarthritis medial compartment of the knee and patellofemoral joint space. No other abnormali ties are seen.. This document is electronically signed by Martínez Castellanos MD., November 12 2018 06:03:48 PM ET
[2018-11-12] MEDS ORDERED: IBUPROFEN PO PRN ×2 (18:15→19:00)
--- NOTE | 2018-11-12 19:33 | XRay Report ---
PROCEDURE: XR FEMUR 2+V RT TECHNIQUE: Right femur 2 views HISTORY: right thigh pain COMPARISONS: FINDINGS: There is concentric narrowing of the right hip joint. Right femur demonstrates no evidence for fractu re or dislocation. There is some marginal osteophyte the femoral head. No evidence for knee effusion. There is mild medial tibiofemoral joint space narrowing. IMPRESSION: DJD of the hip with joint space narrowing Mild degenerative changes at the knee. This document is electronically signed by Kenny Hernandez MD., November 12 2018 07:31:43 PM ET
[2018-11-12] MEDS ORDERED: PRAVACHOL PO SCH (22:00)
[2018-11-13 04:34] VITALS: BP 110/74
--- NOTE | 2018-11-13 10:49 | Discharge Summary ---
Providers - Providers Date of Admission: 11/11/18 18:08 Attending physician: LUARA BARRY MD 11/11/18 20:43 Occupational Therapy Evaluate and Treat [CONS] Routine Comment: Reason For Exam: Neuro deficits Physical Therapy Evaluation and Treat [CONS] Routine Comment: Reason For Exam: Neuro deficits 11/12/18 Consult to Physician [CONS] Routine Comment: Consulting Provider: DELPHINE RANGEL Physician Instructions: Reason For Exam: cva [facility] Condition: Stable Hospital course: 67-year-old male with no significant past medical history who presented to the hospital with 1 day of slurred speech and facial droop. The patient received CT and CT angiogram of his head and neck. There were no acute findings. He was planned for MRI, he was unable to get it the first time he was sent down due to claustrophobia. Medications were ordered for him to go for MRI the following day. But the patient eloped. His symptoms have completely resolved Disposition: IN-07 LEFT AGAINST MED ADVICE Time spent for discharge: 35 minutes Core Measure Documentation - Palliative Care Palliative Care/ Comfort Measures: Not Applicable - Core Measures Any of the following diagnoses?: none Exam - Constitutional Vitals: Temp Pulse Resp BP Pulse Ox 97.6 F 61 12 110/74 99 11/13/18 04:09 11/13/18 08:08 11/13/18 04:09 11/13/18 04:09 11/13/18 04:09 General appearance: Present: no acute distress, well-nourished - EENT Eyes: Present: PERRL ENT: hearing intact, clear oral mucosa - Neck Neck: Present: supple, normal ROM - Respiratory Respiratory effort: normal Respiratory: bilateral: CTA - Cardiovascular Heart Sounds: Present: S1 & S2. Absent: rub, click - Extremities Extremities: pulses symmetrical, No edema Peripheral Pulses: within normal limits - Abdominal General gastrointestinal: Present: soft, non-tender, non-distended, normal bowel sounds Male genitourinary: Present: normal - Integumentary Integumentary: Present: clear, warm, dry - Musculoskeletal Musculoskeletal: gait normal, strength equal bilaterally - Psychiatric Psychiatric: appropriate mood/affect, intact judgment & insight - Neurologic Neurologic: CNII-XII intact, moves all extremities Plan [facility] - 7 Days
== END 2018-11-13 10:38 | disposition left against medical advice (07) | DRG 69 ==
LOC: ED 15:59 → 4A 18:08
PROVIDERS: ADMIT Internal Medicine; ATTEND Internal Medicine
DX: G45.9 Transient cerebral ischemic attack, unspecified (principal); R29.810 Facial weakness; F17.210 Nicotine dependence, cigarettes, uncomplicated; M79.604 Pain in right leg
CPT/HCPCS: 36415; 70450; 70496; 70498; 80048; 80061; 80307; 81001; 82962; 83036; 84484; 85025; 85610; 85670; 85730; 93005; 93010; 93306; 93880; G0378; A9270-GY; Q9967